=== PATIENT | female | born 1940 | race Caucasian/White ===

== ENCOUNTER 2018-08-19 11:41 | Emergency (ER) | payer OTHER ==
[~2018-08-19] VITALS: Ht 154.9 cm; Wt 50.3 kg
[2018-08-19 11:51] VITALS: Ht 154.9 cm; Wt 50.3 kg
[2018-08-19 12:46] LABS: BASOPHIL % 0.7 % (0-2); PLATELET COUNT 256 x10^3mcL (130-400); RED CELL DISTRIBUTION WIDTH 14.2 % (11.5-14.5)
[2018-08-19 12:54] LABS: CALCIUM 10.2 mg/dL (8.5-10.1); CARBON DIOXIDE 31.2 mmol/L (21-32); CHLORIDE SERUM 98 mmol/L (98-107); CREATININE SERUM 2.4 mg/dL (0.6-1.0); GLUCOSE SERUM 102 mg/dL (74-106); SODIUM SERUM 136 mmol/L (136-145)
[2018-08-19] MEDS ORDERED: MORPHINE SULFAT15 M7 PO (12:54)
[2018-08-19] MEDS ORDERED: APAP/HYDROCODON1 T13 PO (12:54)
[2018-08-19] MEDS ORDERED: BUPROPION HCL150 M3 PO (12:55)
[2018-08-19] MEDS ORDERED: ZESTRIL20 MG PO (12:55)
[2018-08-19] MEDS ORDERED: GABAPENTIN600 M1 PO (12:56)
[2018-08-19] MEDS ORDERED: LASIX40 MG PO (12:56)
[2018-08-19] MEDS ORDERED: ATENOLOL50 MG PO (12:56)
[2018-08-19] MEDS ORDERED: MIC8 PO (12:57)
[2018-08-19 13:01] LABS: ALKALINE PHOSPHATASE 73 U/L (46-116); ALT/SGPT 17 U/L (14-59); AST/SGOT 13 U/L (15-37); BILIRUBIN TOTAL 0.21 mg/dL (0.20-1.00); TOTAL PROTEIN, SERUM 6.8 g/dL (6.4-8.2)
[2018-08-19 13:02] LABS: ALBUMIN 3.3 g/dL (3.4-5.0)
[2018-08-19 14:00] LABS: microscopic required? NO
[2018-08-19 14:18] LABS: urine erythrocyte NEGATIVE (NEGATIVE)
[2018-08-19 19:19] VITALS: BP 105/57
== END 2018-08-19 19:19 | disposition short-term general hospital (02) ==
LOC: ED 11:41
PROVIDERS: Emergency Medicine
DX: R53.1 Weakness (principal); R25.1 Tremor, unspecified; R13.10 Dysphagia, unspecified; M06.9 Rheumatoid arthritis, unspecified; I10 Essential (primary) hypertension
CPT/HCPCS: 36415; 83880; J7030; Q0092